=== PATIENT | male | born 1980 | race American Indian/Alaskan Native ===

== ENCOUNTER 2016-11-05 12:43 | Emergency (ER) | payer SELFPAY ==
[2016-11-05 13:11] VITALS: BMI 21.5
[2016-11-05 13:14] VITALS: BP 148/87; PULSE 53; RESP 18; TEMP 98.7; O2SAT 100
--- NOTE | 2016-11-05 13:21 | C.PDOC ---
History Of Present Illness 36 yr old male presents to the ER stating 2 hrs ago he had unprotected sex with his girlfriend and when he went to urinate he saw some blood. Patient denies nausea, vomiting, abdominal pain, diarrhea, dysuria, back pain, weakness or numbness. Time Seen by Provider: 11/05/16 13:16 Chief Complaint (Nursing): Male Genitourinary History Per: Patient History/Exam Limitations: no limitations Onset/Duration Of Symptoms: Hrs (2hrs ago) Past Medical History Reviewed: Historical Data, Nursing Documentation, Vital Signs Vital Signs: Last Vital Signs Temp 98.7 F 11/05/16 13:11 Pulse 53 L 11/05/16 13:11 Resp 18 11/05/16 13:11 BP 148/87 11/05/16 13:11 Pulse Ox 100 11/05/16 16:31 Family History: States: No Known Family Hx - Social History Hx Alcohol Use: No Hx Substance Use: No - Immunization History Hx Tetanus Toxoid Vaccination: Yes Hx Influenza Vaccination: Yes Hx Pneumococcal Vaccination: Yes Review Of Systems Except As Marked, All Systems Reviewed And Found Negative. Gastrointestinal: Negative for: Nausea, Vomiting, Abdominal Pain, Diarrhea Genitourinary: Positive for: Hematuria. Negative for: Dysuria Musculoskeletal: Negative for: Back Pain Neurological: Negative for: Weakness, Numbness Physical Exam - Physical Exam Appears: Well, Non-toxic, No Acute Distress Skin: Warm, Dry, No Rash Head: Atraumatic, Normacephalic Chest: Symmetrical, No Tenderness Cardiovascular: Rhythm Regular, No Murmur Gastrointestinal/Abdominal: Normal Exam, Soft, No Tenderness, No Guarding, No Rebound Extremity: Normal ROM, No Swelling Neurological/Psych: Oriented x3, Normal Speech, Normal Motor ED Course And Treatment O2 Sat by Pulse Oximetry: 100 Progress Note: GC Chlamydia was ordered for patient, along with a dose of Rocephin and Zithromax but patient left before he could be treated or reevaluation. Medical Decision Making Medical Decision Making: PLAN: * GC Chlamydia * Urinlaysi s * Zithromycin PO * Rocephin IM Disposition - Disposition Disposition: ELOPEMENT - ER ONLY Disposition Time: 14:51 Condition: STABLE Additional Instructions: Follow up with PMD/Clinic within 1-2 days. Return to ED if feel worse. Instructions: Acute Hematuria (ED) - Clinical Impression Clinical Impression: Hematuria - PA / [employer] / Resident Statement MD/DO has reviewed & agrees with the documentation as recorded. - Scribe Statement The provider has reviewed the documentation as recorded by the Scribe Carmen Maldonado All medical record entries made by the Scribe were at my direction and personally dictated by me. I have reviewed the chart and agree that the record accurately reflects my personal performance of the history, physical exam, medical decision making, and the department course for this patient. I have also personally directed, reviewed, and agree with the discharge instructions and disposition.
[2016-11-05 14:12] LABS: RBC URINE 2 /hpf (0-3); URINE BILIRUBIN NEGATIVE (NEGATIVE); URINE BLOOD NEGATIVE (NEGATIVE); URINE COLOR Yellow (YELLOW); URINE GLUCOSE (UA) NORMAL (Normal); URINE KETONE NEGATIVE (NEGATIVE); URINE LEUKOCYTE ESTERASE TRACE Leu/uL (Negative); URINE PROTEIN NEGATIVE (NEGATIVE); URINE UROBILINOGEN NORMAL mg/dL (0.2-1.0); WBC URINE 5 /hpf (0-5)
[2016-11-05] MEDS ORDERED: cefTRIAXone (Rocephin) 250 mg Inj IM STA (14:30)
== END 2016-11-05 14:21 | disposition left against medical advice (07) ==
LOC: C.ER 12:43
DX: R31.9 Hematuria, unspecified (principal)